=== PATIENT | male | born 1955 | race Caucasian/White ===

== ENCOUNTER → 2023-06-19 13:19 | Outpatient (BNVA) | payer MEDICARE, SELFPAY | PROVIDERS: PCP Nurse Practitioner Family; Referring Provider Nurse Practitioner Family; Visit Provider Internal Medicine | DX: R79.89 Other specified abnormal findings of blood chemistry (principal); R74.02 Elevation of levels of lactic acid dehydrogenase [LDH]; N43.3 Hydrocele, unspecified; R53.83 Other fatigue | CPT/HCPCS: 99204 ==

== ENCOUNTER → 2024-01-15 10:10 | Outpatient (BNVA) | payer MEDICARE, SELFPAY | PROVIDERS: PCP Nurse Practitioner Family; Visit Provider Internal Medicine | DX: N43.3 Hydrocele, unspecified (principal); R79.89 Other specified abnormal findings of blood chemistry | CPT/HCPCS: 99214 ==